=== PATIENT | female | born 1965 | race Caucasian/White ===

== ENCOUNTER 2016-07-24 16:53 | Inpatient (IN) | payer OTHER ==
[~2016-07-24] VITALS: Ht 160 cm; Wt 103.4 kg
[2016-07-24 17:36] LABS: BASOPHIL % 0.4 % (0-2); PLATELET COUNT 259 x10^3mcL (130-400)
[2016-07-24 17:41] LABS: RED CELL DISTRIBUTION WIDTH 14.8 % (11.5-14.5)
[2016-07-24 17:48] LABS: CALCIUM 8.5 mg/dL (8.5-10.1); CARBON DIOXIDE 31.1 mmol/L (21-32); CHLORIDE SERUM 104 mmol/L (98-107); GFR1 > 60 mL/min; GLUCOSE SERUM 115 mg/dL (74-106); POTASSIUM SERUM 3.8 mmol/L (3.5-5.1); SODIUM SERUM 142 mmol/L (136-145)
[2016-07-24 17:53] LABS: ALBUMIN 3.7 g/dL (3.4-5.0); ALKALINE PHOSPHATASE 191 U/L (46-116); ALT/SGPT 154 U/L (14-59); AST/SGOT 352 U/L (15-37); BILIRUBIN TOTAL 0.9 mg/dL (0.20-1.00); HDL CHOLESTEROL 51 mg/dL (40-60); TRIGLYCERIDES 110 mg/dL (<150)
[2016-07-24 17:54] LABS: CHOLESTEROL 240 mg/dL (<200); CHOLESTEROL/HDL RATIO 4.7
[2016-07-24 18:05] LABS: microscopic required? YES; urine erythrocyte TRACE (NEGATIVE)
[2016-07-24 18:05] LABS: FREE T4 0.91 ng/dL (0.76-1.46); FREE THYROXINE INDEX 2.6 ug/dL (1.4-4.5); T4(THYROXINE) 7.8 ug/dL (4.7-13.3)
[2016-07-24] MEDS ORDERED: LEVOTHYROXIN0.075 M2 PO (18:17)
[2016-07-24 18:33] LABS: T3 TOTAL 0.89 ng/mL
[2016-07-24 18:58] LABS: LIPASE 1391 IU/L (73-393)
[2016-07-24 20:14] VITALS: BP 120/79
[2016-07-24 20:20] LABS: AMPHETAMINE QUAL UR NONE DETECTED (NEG <=1000)
[2016-07-25 06:17] LABS: BASOPHIL % 0.4 % (0-2); PLATELET COUNT 225 x10^3mcL (130-400)
[2016-07-25 06:31] VITALS: BP 124/73
[2016-07-25 06:51] LABS: CHLORIDE SERUM 106 mmol/L (98-107); CREATININE SERUM 0.9 mg/dL (0.6-1.0); GFR1 > 60 mL/min; GLUCOSE SERUM 101 mg/dL (74-106); MAGNESIUM 1.9 mg/dL (1.8-2.4); POTASSIUM SERUM 3.8 mmol/L (3.5-5.1); RED CELL DISTRIBUTION WIDTH 14.7 % (11.5-14.5); SODIUM SERUM 143 mmol/L (136-145)
[2016-07-25 09:06] VITALS: BP 120/73
[2016-07-25 10:13] LABS: BILIRUBIN DIRECT 0.32 mg/dL (0.0-0.2); BILIRUBIN TOTAL 1.03 mg/dL (0.20-1.00); TOTAL PROTEIN, SERUM 6.2 g/dL (6.4-8.2)
[2016-07-25 10:34] LABS: ALBUMIN 3.3 g/dL (3.4-5.0)
[2016-07-25 13:27] VITALS: BP 132/79
[2016-07-25 17:02] VITALS: BP 109/64
[2016-07-25 21:35] VITALS: BP 121/78
[2016-07-26 05:03] VITALS: BP 136/85
[2016-07-26 08:44] VITALS: BP 126/77
[2016-07-26 11:25] VITALS: BP 138/79
[2016-07-26 14:28] LABS: BASOPHIL % 0.1 % (0-2); PLATELET COUNT 213 x10^3mcL (130-400); RED CELL DISTRIBUTION WIDTH 14.5 % (11.5-14.5)
[2016-07-26 14:44] LABS: ALBUMIN 3.3 g/dL (3.4-5.0); ALKALINE PHOSPHATASE 181 U/L (46-116); ALT/SGPT 253 U/L (14-59); AST/SGOT 151 U/L (15-37); BILIRUBIN TOTAL 0.6 mg/dL (0.20-1.00); CALCIUM 8.1 mg/dL (8.5-10.1); CARBON DIOXIDE 25.5 mmol/L (21-32); CHLORIDE SERUM 104 mmol/L (98-107); CREATININE SERUM 0.8 mg/dL (0.6-1.0); GFR1 > 60 mL/min; GLUCOSE SERUM 116 mg/dL (74-106); POTASSIUM SERUM 4.2 mmol/L (3.5-5.1); SODIUM SERUM 138 mmol/L (136-145); TOTAL PROTEIN, SERUM 6.6 g/dL (6.4-8.2)
[2016-07-26 17:58] VITALS: BP 126/67
[2016-07-26 21:08] VITALS: BP 128/75
[2016-07-27 05:26] VITALS: BP 141/75
[2016-07-27 05:44] VITALS: BP 114/67
[2016-07-27 07:16] LABS: BASOPHIL % 0.1 % (0-2); PLATELET COUNT 193 x10^3mcL (130-400)
[2016-07-27 07:17] LABS: RED CELL DISTRIBUTION WIDTH 14.8 % (11.5-14.5)
[2016-07-27 07:37] LABS: ALKALINE PHOSPHATASE 143 U/L (46-116); ALT/SGPT 198 U/L (14-59); AST/SGOT 93 U/L (15-37); BILIRUBIN TOTAL 0.7 mg/dL (0.20-1.00); CALCIUM 8.2 mg/dL (8.5-10.1); CARBON DIOXIDE 27.5 mmol/L (21-32); CHLORIDE SERUM 105 mmol/L (98-107); CREATININE SERUM 0.9 mg/dL (0.6-1.0); GFR1 > 60 mL/min; GLUCOSE SERUM 102 mg/dL (74-106); POTASSIUM SERUM 3.5 mmol/L (3.5-5.1); SODIUM SERUM 141 mmol/L (136-145)
[2016-07-27 07:43] LABS: MAGNESIUM 1.5 mg/dL (1.8-2.4); PHOSPHOROUS 3.9 mg/dL (2.5-4.9)
[2016-07-27 07:45] VITALS: BP 129/81
[2016-07-27 07:54] LABS: TOTAL PROTEIN, SERUM 5.9 g/dL (6.4-8.2)
[2016-07-27 18:00] VITALS: BP 124/77
[2016-07-27 21:33] VITALS: BP 141/85
[2016-07-28 06:00] VITALS: BP 129/76
[2016-07-28 06:19] LABS: BASOPHIL % 0.4 % (0-2); PLATELET COUNT 181 x10^3mcL (130-400)
[2016-07-28 06:22] LABS: CHLORIDE SERUM 106 mmol/L (98-107); CREATININE SERUM 0.7 mg/dL (0.6-1.0); GFR1 > 60 mL/min; GLUCOSE SERUM 106 mg/dL (74-106); MAGNESIUM 1.7 mg/dL (1.8-2.4); POTASSIUM SERUM 3.6 mmol/L (3.5-5.1); SODIUM SERUM 141 mmol/L (136-145)
[2016-07-28 06:35] LABS: RED CELL DISTRIBUTION WIDTH 14.8 % (11.5-14.5)
[2016-07-28] MEDS ORDERED: COLACE100 MG PO (10:26)
[2016-07-28] MEDS ORDERED: MOT800 PO (10:26)
[2016-07-28] MEDS ORDERED: NORCO1 TA2 PO (10:26)
[2016-07-28] MEDS ORDERED: TRAMADOL HCL50 MG PO (10:26)
[2016-07-28 11:59] VITALS: BP 129/76
[2016-07-28 12:30] VITALS: BP 134/90
== END 2016-07-28 14:08 | disposition home or self-care (01) | DRG 263 ==
LOC: ED 16:53 → DU 18:12 → MU 18:12 → DU 19:59 → MU 07-26 11:49
PROVIDERS: Family Medicine; Internal Medicine Gastroenterology; Specialist; Surgery; ADMIT Family Medicine
PROC: 0F9940Z Drainage of Common Bile Duct with Drainage Device, Percutaneous Endoscopic Approach (ICD-10-PCS; 2016-07-26)
PROC: 0FT44ZZ Resection of Gallbladder, Percutaneous Endoscopic Approach (ICD-10-PCS; principal; 2016-07-26 09:00)
DX: K80.42 Calculus of bile duct with acute cholecystitis without obstruction (principal); N17.0 Acute kidney failure with tubular necrosis; K85.90 Acute pancreatitis without necrosis or infection, unspecified; E44.0 Moderate protein-calorie malnutrition; E03.9 Hypothyroidism, unspecified; I16.0 Hypertensive urgency; Z88.0 Allergy status to penicillin
CPT/HCPCS: 80307; 83880; 84439; 94150; J1170; J1885; J1956; J2250; J2270; J2405; J3010; J3490; J7030; J7050; J7120; Q0092

== ENCOUNTER 2017-03-31 17:42 | Emergency (ER) | payer SELFPAY ==
[~2017-03-31] VITALS: Ht 160 cm; Wt 107.0 kg
[~2017-03-31 17:42] MED LIST: COLACE100 MG PO; LEVOTHYROXIN0.075 M2 PO; MOT800 PO; NORCO1 TA2 PO; TRAMADOL HCL50 MG PO
[2017-03-31 19:56] LABS: BASOPHIL % 0.2 % (0-2); PLATELET COUNT 309 x10^3mcL (130-400); RED CELL DISTRIBUTION WIDTH 14.9 % (11.5-14.5)
[2017-03-31 20:16] LABS: CALCIUM 8.8 mg/dL (8.5-10.1); CARBON DIOXIDE 29.4 mmol/L (21-32); CHLORIDE SERUM 104 mmol/L (98-107); CREATININE SERUM 0.8 mg/dL (0.6-1.0); GFR1 > 60 mL/min; GLUCOSE SERUM 112 mg/dL (74-106); POTASSIUM SERUM 3.8 mmol/L (3.5-5.1); SODIUM SERUM 139 mmol/L (136-145)
[2017-03-31 20:19] LABS: ALBUMIN 3.7 g/dL (3.4-5.0); ALKALINE PHOSPHATASE 95 U/L (46-116); ALT/SGPT 23 U/L (14-59); AST/SGOT 15 U/L (15-37); BILIRUBIN TOTAL 0.27 mg/dL (0.20-1.00); TOTAL PROTEIN, SERUM 7.3 g/dL (6.4-8.2)
[2017-03-31 21:27] VITALS: BP 139/86
== END 2017-03-31 21:28 | disposition home or self-care (01) ==
LOC: ED 17:42
PROVIDERS: Emergency Medicine
DX: R07.89 Other chest pain (principal); E03.9 Hypothyroidism, unspecified; G40.909 Epilepsy, unspecified, not intractable, without status epilepticus; Z88.0 Allergy status to penicillin
CPT/HCPCS: 83880; J1885

== ENCOUNTER 2018-06-06 16:59 | Emergency (ER) | payer OTHER ==
[2018-06-06 18:28] LABS: BASOPHIL % 0.7 % (0-2); PLATELET COUNT 264 x10^3mcL (130-400)
[2018-06-06 18:32] LABS: RED CELL DISTRIBUTION WIDTH 14.8 % (11.5-14.5)
[2018-06-06 18:37] LABS: CALCIUM 8.9 mg/dL (8.5-10.1); CHLORIDE SERUM 103 mmol/L (98-107); CREATININE SERUM 0.8 mg/dL (0.6-1.0); GFR1 > 60 mL/min; GLUCOSE SERUM 96 mg/dL (74-106); SODIUM SERUM 139 mmol/L (136-145)
[2018-06-06 18:52] LABS: ALBUMIN 3.9 g/dL (3.4-5.0); ALKALINE PHOSPHATASE 104 U/L (46-116); ALT/SGPT 15 U/L (14-59); AST/SGOT 18 U/L (15-37); BILIRUBIN TOTAL 0.28 mg/dL (0.20-1.00); T4(THYROXINE) 7.2 ug/dL (4.7-13.3); TOTAL PROTEIN, SERUM 7.6 g/dL (6.4-8.2)
[2018-06-06 20:34] VITALS: BP 127/88
== END 2018-06-06 20:34 | disposition home or self-care (01) ==
LOC: ED 16:59
PROVIDERS: Emergency Medicine
DX: K21.9 Gastro-esophageal reflux disease without esophagitis (principal); E03.9 Hypothyroidism, unspecified
CPT/HCPCS: 36415; 82962; 87804